=== PATIENT | female | born 1985 | race Caucasian/White ===

== ENCOUNTER 2017-01-05 00:08 | Inpatient (IN) | payer OTHER ==
[~2017-01-05] VITALS: Ht 167.6 cm; Wt 85.7 kg
[2017-01-05 02:00] LABS: HEMOGLOBIN 10.2 gm/dl (12.3-15.3); RED BLOOD COUNT 3.54 M/UL (4.00-5.10); WHITE BLOOD COUNT 12.8 K/UL (4.5-11.0)
== END 2017-01-08 18:50 | disposition home or self-care (01) | DRG 765 ==
LOC: GENOP 00:08 → OB 01:44
PROVIDERS: Obstetrics & Gynecology; ADMIT Obstetrics & Gynecology
PROC: 10D00Z1 Extraction of Products of Conception, Low, Open Approach (ICD-10-PCS; principal; 2017-01-05 09:33)
DX: O42.02 Full-term premature rupture of membranes, onset of labor within 24 hours of rupture (principal); O98.52 Other viral diseases complicating childbirth; O99.324 Drug use complicating childbirth; N85.8 Other specified noninflammatory disorders of uterus; O34.211 Maternal care for low transverse scar from previous cesarean delivery; O75.82 Onset (spontaneous) of labor after 37 completed weeks of gestation but before 39 completed weeks gestation, with delivery by (planned) cesarean section; Z3A.37 37 weeks gestation of pregnancy; Z37.0 Single live birth; R60.0 Localized edema; A63.0 Anogenital (venereal) warts; O16.4 Unspecified maternal hypertension, complicating childbirth; O99.334 Smoking (tobacco) complicating childbirth; F17.210 Nicotine dependence, cigarettes, uncomplicated; F11.90 Opioid use, unspecified, uncomplicated; O99.62 Diseases of the digestive system complicating childbirth; K21.9 Gastro-esophageal reflux disease without esophagitis; Z88.0 Allergy status to penicillin
CPT/HCPCS: 36415; 80307; 81001; 82800; 83518; 85014; 85018; 85025; 90715; C9113; J0690; J2210; J2590; J2765; J7120

== ENCOUNTER 2020-12-29 20:56 | Inpatient (IN) | payer OTHER ==
[~2020-12-29] VITALS: Ht 167.6 cm; Wt 95.3 kg
[2020-12-30 01:02] LABS: RED BLOOD COUNT 3.64 M/UL (4.00-5.10)
[2020-12-30] MEDS ORDERED: IBUPROFEN600 MG PO (02:37)
[2020-12-30] MEDS ORDERED: HYDROCODONE-AC1 EACH PO (02:37)
[2020-12-30] MEDS ORDERED: DOCUSATE SODIU250 MG PO (02:37)
[2020-12-30] MEDS ORDERED: FEROSUL325 MG PO (06:59)
[2020-12-30] MEDS ORDERED: PRENATAL VITAM1 EAC3 PO (07:00)
[2020-12-31 06:41] LABS: HEMOGLOBIN 9.2 gm/dl (12.3-15.3)
[2021-01-02] MEDS ORDERED: LABETALOL HCL200 MG PO (09:13)
== END 2021-01-02 16:00 | disposition home or self-care (01) | DRG 787 ==
LOC: GENOP 20:56 → OB 12-30 02:00
PROVIDERS: Obstetrics & Gynecology; ADMIT Obstetrics & Gynecology
PROC: 4A1HXCZ Monitoring of Products of Conception, Cardiac Rate, External Approach (ICD-10-PCS; 2020-12-30)
PROC: 3E02340 Introduction of Influenza Vaccine into Muscle, Percutaneous Approach (ICD-10-PCS; 2020-12-30)
PROC: 10D00Z1 Extraction of Products of Conception, Low, Open Approach (ICD-10-PCS; principal; 2020-12-30 02:26)
DX: O34.211 Maternal care for low transverse scar from previous cesarean delivery (principal); O98.52 Other viral diseases complicating childbirth; B19.20 Unspecified viral hepatitis C without hepatic coma; O77.0 Labor and delivery complicated by meconium in amniotic fluid; Z20.822 Contact with and (suspected) exposure to COVID-19; O16.5 Unspecified maternal hypertension, complicating the puerperium; Z3A.38 38 weeks gestation of pregnancy; Z37.0 Single live birth; Z23 Encounter for immunization
CPT/HCPCS: 36415; 80307; 81001; 82800; 85014; 85018; 85025; C9113; J0456; J0690; J1885; J2274; J2405; J2590; J3010; J7030; J7120; U0002

== ENCOUNTER 2021-01-07 10:02 | Observation (INO) | payer OTHER ==
[~2021-01-07] VITALS: Ht 167.6 cm; Wt 81.6 kg
[~2021-01-07 10:02] MED LIST: DOCUSATE SODIU250 MG PO; FEROSUL325 MG PO; HYDROCODONE-AC1 EACH PO; IBUPROFEN600 MG PO; LABETALOL HCL200 MG PO; PRENATAL VITAM1 EAC3 PO
[2021-01-07 11:02] LABS: HEMOGLOBIN 12.2 gm/dl (12.3-15.3); RED BLOOD COUNT 4.46 M/UL (4.00-5.10); WHITE BLOOD COUNT 11.5 K/UL (4.5-11.0)
[2021-01-07 11:30] LABS: BUN/CREATININE RATIO 25 (0-10)
== END 2021-01-08 13:20 | disposition home or self-care (01) ==
LOC: GENOP 10:02 → OB 10:22
PROVIDERS: ADMIT Obstetrics & Gynecology
DX: O14.95 Unspecified pre-eclampsia, complicating the puerperium (principal); O98.43 Viral hepatitis complicating the puerperium; B18.2 Chronic viral hepatitis C; O99.355 Diseases of the nervous system complicating the puerperium; G43.909 Migraine, unspecified, not intractable, without status migrainosus; O99.335 Smoking (tobacco) complicating the puerperium; F17.210 Nicotine dependence, cigarettes, uncomplicated; O99.325 Drug use complicating the puerperium; F15.10 Other stimulant abuse, uncomplicated; O99.215 Obesity complicating the puerperium; E66.9 Obesity, unspecified; Z88.0 Allergy status to penicillin
CPT/HCPCS: 36415; 80053; 83615; 83735; 84550; 85025; G0378; J3475; J7120